=== PATIENT | female | born 1990 | race African-American/Black ===

== ENCOUNTER 2016-12-03 16:51 | Emergency (ER) | payer MEDICAID ==
[~2016-12-03] VITALS: Ht 180.3 cm; Wt 170.4 kg
[~2016-12-03 16:51] MED LIST: DICL75TA PO; IBUP800T23 PO; METH750T2 PO; METR500I3 PO
[2016-12-03 16:52] VITALS: BP 144/77; PULSE 112; RESP 14; TEMP 102.8; O2SAT 100
[2016-12-03] MEDS ORDERED: BUPR150XL PO (19:19)
[2016-12-03] MEDS ORDERED: BUSP10TA PO (19:19)
[2016-12-03 19:21] VITALS: BP 140/65; PULSE 115; RESP 18; TEMP 100.3; O2SAT 99
[2016-12-03] MEDS ORDERED: ACETAMINOPHEN 325 MG TAB PO ONE ×2 (19:30→19:45)
[2016-12-03] MEDS ORDERED: SODIUM CHLORIDE 0.9% FLUSH 5 ML FLUSH IVF PRN (19:30)
[2016-12-03] MEDS ORDERED: SODIUM CHLOR 0.9% 1000 ML INJ 1,000 ML IV ONE ×2 (19:30→19:45)
--- NOTE | 2016-12-03 19:32 | PD ---
HPI Chief Complaint: Fever Time Seen by Provider: 19:29 Travel History International Travel<30 days: No Contact w/Intl Traveler<30days: No Traveled to known affect area: No History of Present Illness HPI Patient comes in complaining of headache and generalized body aches that began last night. Patient denies any nausea, vomiting, chest pain, shortness of breath, abdominal pain, loss or change in bowel or bladder, numbness or tingling anywhere, or known sick contacts. Patient denies doing anything for this. Denies anything making it better or worse. PFSH Past Medical History Anxiety: Yes Depression: Yes Diminished Hearing: No Hypertension: Yes Immunizations Current: No Tetanus Vaccination: > 5 Years Influenza Vaccination: No ?: Not LMP: CURRENT : 1 Para: 1 Miscarriage: 0 : 0 Past Surgical History Section: Yes Social History Alcohol Use: Yes (OCCAS) Tobacco Use: No Substance Use: No (denies) Allergies-Medications (Allergen,Severity, Reaction): Coded Allergies: No Known Allergies (Verified , 12/03/16) Reported Meds & Prescriptions Reported Meds & Active Scripts Active Zofran Odt (Ondansetron Odt) 4 Mg Tab 4 Mg SL Q6HR PRN Tamiflu (Oseltamivir Phosphate) 75 Mg Cap 75 Mg PO BID Reported Buspirone (Buspirone HCl) 10 Mg Tab 10 Mg PO HS Wellbutrin Xl 24 HR (Bupropion HCl) 150 Mg Tab 150 Mg PO DAILY Review of Systems Except as stated in HPI: all other systems reviewed are Neg Physical Exam Narrative GENERAL: Well-developed, overly nourished, in no acute distress, and non-ill appearing. SKIN: Warm and dry. HEAD: Atraumatic. Normocephalic. EYES: Pupils equal and round. EOMI. No scleral icterus. No injection or drainage. ENT: No nasal bleeding or discharge. Mucous membranes pink and moist. Minimal erythematous bilateral tympanic membranes. Tenderness to maxillary sinuses palpation. Posterior pharynx erythematous without exudate. Uvula is midline. NECK: Trachea midline. No cervical lymphadenopathy. Supple. No nuclear rigidity. CARDIOVASCULAR: Regular rate and rhythm. No murmur appreciated. RESPIRATORY: No accessory muscle use. No respiratory distress. Clear to auscultation. Breath sounds equal bilaterally. GASTROINTESTINAL: Abdomen soft, non-tender, nondistended. Hepatic and splenic margins not palpable. Normal bowel sounds 4. No pulsatile mass. MUSCULOSKELETAL: No obvious deformities. No clubbing. No cyanosis. No edema. Full range of motion. NEUROLOGICAL: Awake and alert. No obvious cranial nerve deficits. Motor grossly within normal limits. Normal speech. PSYCHIATRIC: Appropriate mood and affect; insight and judgment normal. Data Data Last Documented VS Vital Signs Date Time Temp Pulse Resp B/P Pulse Ox O2 Delivery O2 Flow Rate FiO2 12/03/16 21:33 99.1 92 16 131/77 98 12/03/16 19:49 Room Air Orders Complete Blood Count With Diff (12/03/16 19:25) Basic Metabolic Panel (Bmp) (12/03/16 19:25) Influenzae A/B Antigen (12/03/16 19:25) Chest, Single Ap (12/03/16 19:25) Ecg Monitoring (12/03/16 19:25) Iv Access Insert/Monitor (12/03/16 19:25) Oximetry (12/03/16 19:25) Acetaminophen (Tylenol) (12/03/16 19:30) Sodium Chloride 0.9% Flush (Ns Flush) (12/03/16 19:30) Sodium Chlor 0.9% 1000 Ml Inj (Ns 1000 M (12/03/16 19:30) Acetaminophen (Tylenol) (12/03/16 19:45) Sodium Chlor 0.9% 1000 Ml Inj (Ns 1000 M (12/03/16 19:45) Oseltamivir (Tamiflu) (12/03/16 20:30) Labs Laboratory Tests Test 12/03/16 19:36 White Blood Count 4.7 TH/MM3 Red Blood Count 4.60 MIL/MM3 Hemoglobin 12.1 GM/DL Hematocrit 36.2 % Mean Corpuscular Volume 78.7 FL Mean Corpuscular Hemoglobin 26.3 PG Mean Corpuscular Hemoglobin 33.4 % Concent Red Cell Distribution Width 13.8 % Platelet Count 155 TH/MM3 Mean Platelet Volume 10.4 FL Neutrophils (%) (Auto) 71.6 % Lymphocytes (%) (Auto) 14.8 % Monocytes (%) (Auto) 12.6 % Eosinophils (%) (Auto) 0.4 % Basophils (%) (Auto) 0.6 % Neutrophils # (Auto) 3.4 TH/MM3 Lymphocytes # (Auto) 0.7 TH/MM3 Monocytes # (Auto) 0.6 TH/MM3 Eosinophils # (Auto) 0.0 TH/MM3 Basophils # (Auto) 0.0 TH/MM3 CBC Comment DIFF FINAL Differential Comment Sodium Level 136 MEQ/L Potassium Level 4.0 MEQ/L Chloride Level 101 MEQ/L Carbon Dioxide Level 28.2 MEQ/L Anion Gap 7 MEQ/L Blood Urea Nitrogen 7 MG/DL Creatinine 0.90 MG/DL Estimat Glomerular Filtration 91 ML/MIN Rate Random Glucose 94 MG/DL Calcium Level 8.6 MG/DL MDM Medical Decision Making Medical Screen Exam Complete: Yes Emergency Medical Condition: Yes Differential Diagnosis Influenza, strep pharyngitis, sinusitis, electrolyte abnormality, pneumonia, other Narrative Course Patient looks great. Patients symptom complex is consistent with Influenza, or flu-like illness. The patient is tolerating fluids and is well hydrated. There is no evidence to suggest secondary infection (pneumonia, sepsis/bacteremia, etc.) at this time. I discussed with the patient, diagnosis, and plan of care and to follow up with the patients primary physician. Flu prep is positive. I discussed with the patient initiating Tamiflu and the patient agreed with plan. The patient was instructed to return if the worsens in anyway, especially if not tolerating fluids, increased pain or swelling, difficulty swallowing or breathing, or as needed. The patient agreed with plan. Chest xray was performed and negative for consolidation, pneumonia. Patient was given IVF and improved. Patient in no obvious distress upon re-evaluation. All pertinent laboratory/ Radiology result(s) discussed with patient. Patient was asked if they wanted to speak to my attending, which the patient did not wish to do at this time. Discussed patient with Dr. Sexton, who is in agreement with plan of care and disposition. Any questions/concerns in reference to patient diagnosis/condition discussed and clarified prior to patient's discharge. Reinforced sheer importance of close follow up with patient's primary physician or primary care clinic. Instructed patient to return to ED immediately, if symptoms return/ worsen. Pt showed understanding of above instructions. Further instructions and recommendations were detailed in discharge paperwork. Pt ambulated without difficulty out of ED at discharge. Diagnosis Primary Impression: Influenza A Patient Instructions: General Instructions, Influenza (DC) Additional Instructions: Follow-up with your primary care physician in 3-5 days for reevaluation. Take all medication as prescribed. Use [id number] Tylenol and ibuprofen as needed for pain and/or fever control. Follow instructions on the packaging. Drink plenty of non-caffeinated and nonalcoholic fluids. Return to the emergency department if symptoms get worse. Med/Other Pt SpecificInfo: Prescription(s) given Scripts Ondansetron Odt (Zofran Odt)4 Mg Tab4 Mg SL Q6HR PRN (Nausea/Vomiting) #12 TAB Ref 0 Prov:Dawson Sexton MD 12/03/16 Oseltamivir (Tamiflu)75 Mg Cap75 Mg PO BID #9 CAP Ref 0 Prov:Dawson Sexton MD 12/03/16 Disposition: 01 DISCHARGE HOME Condition: Stable Clemente Brooke Dec 03, 2016 19:32
[2016-12-03 19:49] VITALS: O2SAT 100
[2016-12-03 20:05] LABS: AUTOMATED NEUTROPHIL # 3.4 TH/MM3 (1.8-7.7); BASOPHIL % 0.6 % (0.0-2.0); EOSINOPHIL % 0.4 % (0.0-4.0); HEMATOCRIT 36.2 % (35.0-46.0); HEMO FLAGS DIFF FINAL; LYMPH % 14.8 % (9.0-44.0); LYMPHOCYTE # 0.7 TH/MM3 (1.0-4.8); MEAN CELL VOLUME 78.7 FL (80.0-100.0); MEAN CORPUSCULAR HEMOGLOBIN 26.3 PG (27.0-34.0); MEAN CORPUSCULAR HGB CONC 33.4 % (32.0-36.0); MONO % 12.6 % (0.0-8.0); NEUT % 71.6 % (16.0-70.0); PLATELET COUNT 155 TH/MM3 (150-450); RED CELL DISTRIBUTION WIDTH 13.8 % (11.6-17.2); WHITE BLOOD COUNT 4.7 TH/MM3 (4.0-11.0)
[2016-12-03 20:29] LABS: BICARBONATE 28.2 MEQ/L (21.0-32.0)
[2016-12-03] MEDS ORDERED: OSELTAMIVIR PHOSPHATE 75 MG CAP PO ONE (20:30)
[2016-12-03] MEDS ORDERED: OSEL75 PO (20:33)
[2016-12-03] MEDS ORDERED: ZOFR4TAB3 SL (20:37)
--- NOTE | 2016-12-03 21:13 | RADRPT ---
EXAM DATE/TIME: 12/03/2016 17:53 [facility] COMPARISON: No previous studies available for comparison. INDICATIONS : Fever x 1 day MEDICAL HISTORY : Hypertension. SURGICAL HISTORY : section. ENCOUNTER: Initial ACUITY: 1 day PAIN SCORE: 0/10 LOCATION: Bilateral chest FINDINGS: A single view of the chest demonstrates the lungs to be symmetrically aerated without evidence of mas s, infiltrate or effusion. The cardiomediastinal contours are unremarkable. Osseous structures are intact. CONCLUSION: Normal examination for a patient of this age. Giovani Pandey MD on December 03, 2016 at 21:11 Board Certified Radiologist. This report was verified electronically.
[2016-12-03 21:33] VITALS: BP 131/77; TEMP 99.1
== END 2016-12-03 21:39 | disposition home or self-care (01) ==
LOC: NEPC 16:51
DX: J09.X2 Influenza due to identified novel influenza A virus with other respiratory manifestations (principal)
CPT/HCPCS: 71010; 80048; 85025; 87804; 96360; 96361; 99284; J7030

== ENCOUNTER 2017-05-26 20:08 | Emergency (ER) | payer MEDICAID ==
[~2017-05-26 20:08] MED LIST changes: +BUPR150XL PO; +BUSP10TA PO; -DICL75TA PO; -IBUP800T23 PO; -METH750T2 PO; -METR500I3 PO; +OSEL75 PO; +ZOFR4TAB3 SL
[2017-05-26 20:10] VITALS: BP 131/86; PULSE 93; RESP 16; TEMP 98.3; O2SAT 100
== END 2017-05-26 22:40 | disposition left against medical advice (07) ==
LOC: NED 20:08
DX: Z03.89 Encounter for observation for other suspected diseases and conditions ruled out (principal)
CPT/HCPCS: 99281

== ENCOUNTER 2017-09-28 13:29 | Emergency (ER) | payer MEDICAID ==
[~2017-09-28] VITALS: Ht 172.7 cm; Wt 150.0 kg
[2017-09-28 13:30] VITALS: BP 119/60; PULSE 80; RESP 18; TEMP 99; O2SAT 100
--- NOTE | 2017-09-28 15:47 | PD ---
HPI Chief Complaint: Cold / Flu Symptoms Time Seen by Provider: 15:10 Travel History International Travel<30 days: No Contact w/Intl Traveler<30days: No Traveled to known affect area: No History of Present Illness HPI 27-year-old female presents to emergency Department with complaint of cough, mild nasal congestion, scratchy throat since yesterday. Reports bilateral ear pressure. Denies nausea, vomiting, diarrhea, fevers, abdominal pain, chest tightness, shortness of breath, wheezing. Has not taken any medications or tried any treatments to alleviate her symptoms. Symptoms are mild in severity. No known relieving or aggravating factors. No known allergies. Primary care provider is Dr. Donnie Mane. History of hypertension, autism, depression. No other medical complaints. No other modifying factors or associated signs and symptoms. PFSH Past Medical History Anxiety: Yes Depression: Yes Diminished Hearing: No Hypertension: Yes Immunizations Current: No ?: Not : 1 Para: 1 Miscarriage: 0 : 0 Past Surgical History Section: Yes Social History Alcohol Use: Yes (OCCAS) Tobacco Use: No Substance Use: No (denies) Allergies-Medications (Allergen,Severity, Reaction): Coded Allergies: No Known Allergies (Verified Adverse Reaction, Unknown, 09/28/17) Reported Meds & Prescriptions Reported Meds & Active Scripts Active Zofran Odt (Ondansetron Odt) 4 Mg Tab 4 Mg SL Q6HR PRN Tamiflu (Oseltamivir Phosphate) 75 Mg Cap 75 Mg PO BID Reported Buspirone (Buspirone HCl) 10 Mg Tab 10 Mg PO HS Wellbutrin Xl 24 HR (Bupropion HCl) 150 Mg Tab 150 Mg PO DAILY Review of Systems Except as stated in HPI: all other systems reviewed are Neg Physical Exam Narrative GENERAL: Well-nourished, well-developed black female patient, in no acute distress; afebrile, nontoxic-appearing SKIN: Warm and dry. No rash. HEAD: Atraumatic. Normocephalic. EYES: Pupils equal and round. No scleral icterus. No injection or drainage. ENT: Mucosa pink and moist. No erythema or exudates or edema. No uvular edema. No uvular, palatal, or tonsillar deviation. Airway patent. EARS: Bilateral pinnae and external canals appear within normal limits. Bilateral tympanic membranes without erythema, dullness or perforation. NECK: Trachea midline. No lymphadenopathy. CARDIOVASCULAR: Regular rate and rhythm. No murmur appreciated. RESPIRATORY: No accessory muscle use. Clear to auscultation. Breath sounds equal bilaterally. No retractions or tachypnea. GASTROINTESTINAL: Abdomen soft, non-tender, nondistended. Hepatic and splenic margins not palpable. Bowel sounds are active 4 quadrants. MUSCULOSKELETAL: No obvious deformities. No clubbing. No cyanosis. No edema. NEUROLOGICAL: Awake and alert. Oriented 3. No obvious cranial nerve deficits. Motor grossly within normal limits. Normal speech. Moves all extremities. 5/5 strength to all extremities. PSYCHIATRIC: Appropriate mood and affect; insight and judgment normal. Data Data Last Documented VS Vital Signs Date Time Temp Pulse Resp B/P (MAP) Pulse Ox O2 Delivery O2 Flow Rate FiO2 09/28/17 13:30 99.0 80 18 119/60 (79) 100 Orders Orders Ed Discharge Order (09/28/17 15:47) [facility] Medical Decision Making Medical Screen Exam Complete: Yes Emergency Medical Condition: Yes Medical Record Reviewed: Yes Differential Diagnosis Viral illness, bronchitis, less likely influenza or strep throat Narrative Course 27-year-old female physical examination and history of present illness consistent with viral illness. Patient is afebrile and nontoxic-appearing. Denies fever, vomiting. Lungs are clear and equal throughout on auscultation. Patient denies chest tightness, shortness of breath, wheezing. Discussed viral illness and symptom management. Patient agrees with plan of care. Instructed patient to follow up with primary care provider. Patient verbalizes understanding and agreement with treatment plan. Patient is medically cleared and stable for discharge. Discussed reasons to return to the emergency department. Patient agrees with treatment plan. The patients vital signs are stable and the patient is stable for outpatient follow-up and treatment. Patient discharged home, stable and in no acute distress. Diagnosis Primary Impression: Viral illness Referrals: [facility] Primary Care Physician Patient Instructions: Cold Symptoms (ED), General Instructions, Safe Use of Cough and Cold Medicines (ED) Additional Instructions: Ibuprofen or Tylenol as directed and as needed to reduce fever/pain [id number] cold/flu medications as directed and as needed for symptom management [id number] throat sprays as directed and as needed for throat pain Get plenty of sleep/rest Drink plenty of fluids to prevent dehydration; such as Gatorade, Powerade, Pedialyte Pope diet to encourage nutrition such as crackers, fruit, applesauce, toast, soup etc. Use an air humidifier/turn off ceiling fans Follow-up with your primary care provider Return immediately to the emergency department with worsening of symptoms Med/Other Pt SpecificInfo: No Change to Meds, No Meds Exist/No RX given Disposition: 01 DISCHARGE HOME Condition: Stable Whit Marin Sep 28, 2017 15:47
== END 2017-09-28 15:58 | disposition home or self-care (01) ==
LOC: NEPD 13:29
DX: B34.9 Viral infection, unspecified (principal); F41.9 Anxiety disorder, unspecified; F32.9 Major depressive disorder, single episode, unspecified; I10 Essential (primary) hypertension; Z79.899 Other long term (current) drug therapy
CPT/HCPCS: 99282